=== PATIENT | male | born 1965 | race Caucasian/White ===

== ENCOUNTER 2017-10-03 23:32 | Inpatient (IN) | payer OTHER ==
[~2017-10-03] VITALS: Ht 182.9 cm; Wt 145.3 kg
[~2017-10-03 23:32] MED LIST: ASPI-621 PO; ASPI325T17 PO; CARV-39 PO; CARV3.122 PO; CARV6.2512 PO; DOCU-131 PO; FURO-93 PO; FURO40TA6 PO; GUAI5SYR PO; LEVO750T26 PO; LISI-167 PO; LISI-466 PO; LISI40TA PO; MAGNESIUM DR64 MG PO; POTA20TA14 PO; PRED10TA14 PO; SIMV10TA PO
[2017-10-04 00:29] LABS: BASOPHILS # (AUTO) 0.01 x10^3/uL (0-0.1); BASOPHILS % (AUTO) 0 % (0-1); EOSINOPHILS # (AUTO) 0.05 x10^3/uL (0-0.4); EOSINOPHILS % (AUTO) 0 % (1-7); LYMPHOCYTES # (AUTO) 0.42 x10^3/uL (1-3.4); LYMPHOCYTES % (AUTO) 3 % (22-44); MD NO; MEAN CORPUSCULAR HEMOGLOBIN 32.1 pg (27.5-34.5); MEAN CORPUSCULAR HGB CONC 34.2 g/dL (33.2-36.2); MEAN CORPUSCULAR VOLUME 93.9 fL (81-97); MEAN PLATELET VOLUME 7.4 fL (7.4-10.4); MONOCYTES # (AUTO) 0.77 x10^3/uL (0.2-0.8); MONOCYTES % (AUTO) 6 % (2-9); NEUTROPHILS # (AUTO) 11.96 x10^3/uL (1.8-6.8); NEUTROPHILS % (AUTO) 91 % (42-75); PLATELET COUNT 150 x10^3/uL (130-400); RED BLOOD COUNT 4.32 x10^6/uL (4.38-5.82); RED CELL DISTRIBUTION WIDTH 15.2 % (9.4-14.8)
[2017-10-04 00:41] LABS: ALANINE AMINOTRANSFERASE 31 U/L (12-78); ALBUMIN 2.7 g/dL (3.4-5.0); ANION GAP 8 mmol/L (5-15); CALCIUM 7.9 mg/dL (8.5-10.1); CHLORIDE 98 mmol/L (98-107); CREATININE 2.31 mg/dL (0.7-1.3)
[2017-10-04 00:46] LABS: ALKALINE PHOSPHATASE 80 U/L (45-117); BILIRUBIN,TOTAL 0.7 mg/dL (0.2-1.0); D-DIMER 3.07 ug/mlFEU (0.00-0.52); INTERNATIONAL NORMALIZED RATIO 1.12 (0.93-1.1); PROTHROMBIN TIME 11.5 Seconds (9.6-11.5); TOTAL PROTEIN 6.4 g/dL (6.4-8.2)
[2017-10-04 00:52] LABS: TROPONIN I 0.154 ng/mL (0.000-0.045)
[2017-10-04] MEDS ORDERED: HEPARIN 5,000 UNITS/ML, 1ML ONE (01:26)
[2017-10-04] MEDS ORDERED: HEPARIN 25,000 UNITS/500ML PMX 500 ML ONE (01:28)
[2017-10-04] MEDS ORDERED: HEPARIN 5,000 UNITS/ML, 1ML IV ONE ×3 (01:30→09:30)
[2017-10-04] MEDS ORDERED: HEPARIN 25,000 UNITS/500ML PMX 500 ML IV PRN ×3 (01:30→09:30)
[2017-10-04] MEDS ORDERED: VANCOMYCIN 2,400 MG in SODIUM CHLORIDE 0.9% 500 ML IV ONE (01:30)
[2017-10-04] MEDS ORDERED: VANCOMYCIN PER PHARMACY MC PRN (01:30)
[2017-10-04] MEDS ORDERED: ASPIRIN 81 MG TABLET CHEW ONE (01:56)
[2017-10-04] MEDS ORDERED: ASPIRIN 81 MG TABLET CHEW PO ONE (02:00)
[2017-10-04] MEDS ORDERED: SODIUM CHLORIDE 0.9% 1,000 ML IV SCH (02:40)
[2017-10-04] MEDS ORDERED: DOCUSATE 100 MG CAPSULE PO PRN (03:00)
[2017-10-04] MEDS ORDERED: hydrALAzine 20 MG/ML, 1ML IVPush PRN (03:00)
[2017-10-04 03:19] VITALS: BP 106/69
[2017-10-04 04:13] LABS: BASOPHILS # (AUTO) 0.01 x10^3/uL (0-0.1); BASOPHILS % (AUTO) 0 % (0-1); EOSINOPHILS # (AUTO) 0.06 x10^3/uL (0-0.4); EOSINOPHILS % (AUTO) 0 % (1-7); LYMPHOCYTES # (AUTO) 0.43 x10^3/uL (1-3.4); LYMPHOCYTES % (AUTO) 4 % (22-44); MD NO; MEAN CORPUSCULAR HGB CONC 33.9 g/dL (33.2-36.2); MEAN CORPUSCULAR VOLUME 94.4 fL (81-97); MEAN PLATELET VOLUME 7.9 fL (7.4-10.4); MONOCYTES # (AUTO) 0.68 x10^3/uL (0.2-0.8); MONOCYTES % (AUTO) 5 % (2-9); NEUTROPHILS # (AUTO) 11.24 x10^3/uL (1.8-6.8); NEUTROPHILS % (AUTO) 91 % (42-75); PLATELET COUNT 142 x10^3/uL (130-400); RED BLOOD COUNT 4.18 x10^6/uL (4.38-5.82); RED CELL DISTRIBUTION WIDTH 15.5 % (9.4-14.8)
[2017-10-04 04:23] LABS: ALBUMIN 2.6 g/dL (3.4-5.0); ANION GAP 7 mmol/L (5-15); CALCIUM 7.7 mg/dL (8.5-10.1); CHLORIDE 100 mmol/L (98-107)
[2017-10-04 04:29] LABS: ALANINE AMINOTRANSFERASE 30 U/L (12-78); ALKALINE PHOSPHATASE 78 U/L (45-117); BILIRUBIN,TOTAL 0.8 mg/dL (0.2-1.0); CREATININE 1.76 mg/dL (0.7-1.3); TOTAL PROTEIN 6.3 g/dL (6.4-8.2); TROPONIN I 0.174 ng/mL (0.000-0.045)
[2017-10-04 04:35] LABS: THYROID STIMULATING HORMONE 0.128 mIU/L (0.358-3.740)
[2017-10-04 04:51] LABS: CULTURE INDICATED? YES; MICROSCOPIC INDICATED
[2017-10-04] MEDS: ASPIRIN 81 MG TABLET EC PO SCH (06:21)
[2017-10-04] MEDS: ACETAMINOPHEN 325 MG TABLET PO PRN ×2 (06:22→22:14)
[2017-10-04 07:00] VITALS: BP 126/83
[2017-10-04] MEDS: MAGNESIUM CHLORIDE 64 MG TABLET.DR PO SCH (09:00)
[2017-10-04] MEDS ORDERED: HEPARIN 5,000 UNITS/ML, 1ML IV PRN (09:30)
[2017-10-04] MEDS: CARVEDILOL 25 MG TABLET PO SCH ×2 (10:14→21:26)
[2017-10-04] MEDS: POLYETHYLENE GLYCOL 17 GM PACKET PO SCH (10:14)
[2017-10-04] MEDS: HEPARIN 25,000 UNITS/500ML PMX 500 ML IV PRN (10:21)
[2017-10-04 12:28] LABS: TROPONIN I 0.166 ng/mL (0.000-0.045)
[2017-10-04 13:20] VITALS: BP 96/60
[2017-10-04] MEDS ORDERED: SODIUM CHLORIDE 0.9% 500 ML IV SCH (13:30)
[2017-10-04] MEDS: HEPARIN 5,000 UNITS/ML, 1ML IV PRN ×2 (17:17→23:59)
[2017-10-04] MEDS: SODIUM CHLORIDE 0.9% 1,000 ML IV SCH (17:20)
[2017-10-04] MEDS ORDERED: CEFTRIAXONE 1,000 MG in SODIUM CHLORIDE 0.9% 50 ML IV SCH (17:30)
[2017-10-04] MEDS: CEFTRIAXONE PMX 1GM/50ML 50 ML IV SCH (18:03)
[2017-10-04 19:14] VITALS: BP 97/63
[2017-10-04 21:19] VITALS: BP 97/62
[2017-10-04] MEDS: SIMVASTATIN 10 MG TABLET PO SCH (21:27)
[2017-10-05] MEDS: HEPARIN 25,000 UNITS/500ML PMX 500 ML IV PRN (00:03)
[2017-10-05 02:16] VITALS: BP 101/65
[2017-10-05] MEDS: ASPIRIN 81 MG TABLET EC PO SCH (06:20)
[2017-10-05] MEDS: HEPARIN 5,000 UNITS/ML, 1ML IV PRN (06:21)
[2017-10-05] MEDS: ACETAMINOPHEN 325 MG TABLET PO PRN (06:44)
[2017-10-05 07:03] VITALS: BP 105/68
[2017-10-05] MEDS: CARVEDILOL 25 MG TABLET PO SCH ×2 (08:08→21:00)
[2017-10-05] MEDS: POLYETHYLENE GLYCOL 17 GM PACKET PO SCH (08:08)
[2017-10-05] MEDS: MAGNESIUM CHLORIDE 64 MG TABLET.DR PO SCH (08:08)
[2017-10-05] MEDS: SODIUM CHLORIDE 0.9% 1,000 ML IV SCH ×2 (08:08→18:18)
[2017-10-05 13:22] VITALS: BP 103/65
[2017-10-05] MEDS ORDERED: SODIUM CHLORIDE 0.9% 500 ML IV ONE (13:30)
[2017-10-05] MEDS: TAMSULOSIN 0.4 MG CAP.ER.24H PO SCH (14:07)
[2017-10-05] MEDS: MORPHINE SULFATE 4 MG/ML, 1ML IVPush PRN (16:37)
[2017-10-05 17:37] LABS: TROPONIN I 0.049 ng/mL (0.000-0.045)
[2017-10-05] MEDS: CEFTRIAXONE PMX 1GM/50ML 50 ML IV SCH (18:17)
[2017-10-05 19:04] VITALS: BP 105/65
[2017-10-05] MEDS: ONDANSETRON 2MG/ML, 2ML IVPush PRN (21:50)
[2017-10-05] MEDS: HYDROcodone/APAP 5/325 TABLET PO PRN (21:51)
[2017-10-05] MEDS: SIMVASTATIN 10 MG TABLET PO SCH (21:53)
[2017-10-05 21:58] VITALS: BP_SYST 109; BP_SYST 98; BP_DIAS 21; BP_DIAS 69
[2017-10-06 00:59] VITALS: BP 95/58
[2017-10-06] MEDS: SODIUM CHLORIDE 0.9% 1,000 ML IV SCH ×2 (05:01→15:11)
[2017-10-06] MEDS: ASPIRIN 81 MG TABLET EC PO SCH (05:04)
[2017-10-06 05:06] LABS: BASOPHILS % (AUTO) 0 % (0-1); EOSINOPHILS # (AUTO) 0.13 x10^3/uL (0-0.4); EOSINOPHILS % (AUTO) 1 % (1-7); LYMPHOCYTES # (AUTO) 0.48 x10^3/uL (1-3.4); LYMPHOCYTES % (AUTO) 4 % (22-44); MD NO; MEAN CORPUSCULAR HGB CONC 33.7 g/dL (33.2-36.2); MEAN CORPUSCULAR VOLUME 95.1 fL (81-97); MEAN PLATELET VOLUME 8.4 fL (7.4-10.4); MONOCYTES # (AUTO) 0.99 x10^3/uL (0.2-0.8); MONOCYTES % (AUTO) 9 % (2-9); NEUTROPHILS # (AUTO) 9.33 x10^3/uL (1.8-6.8); NEUTROPHILS % (AUTO) 85 % (42-75); PLATELET COUNT 124 x10^3/uL (130-400); RED CELL DISTRIBUTION WIDTH 15.7 % (9.4-14.8)
[2017-10-06 05:08] LABS: ANION GAP 3 mmol/L (5-15); CALCIUM 7.8 mg/dL (8.5-10.1); CHLORIDE 102 mmol/L (98-107); CREATININE 1.01 mg/dL (0.7-1.3)
[2017-10-06 08:09] VITALS: BP 99/63
[2017-10-06] MEDS: MAGNESIUM CHLORIDE 64 MG TABLET.DR PO SCH (09:00)
[2017-10-06] MEDS: CARVEDILOL 25 MG TABLET PO SCH ×2 (10:01→19:50)
[2017-10-06] MEDS: POLYETHYLENE GLYCOL 17 GM PACKET PO SCH (10:01)
[2017-10-06] MEDS: TAMSULOSIN 0.4 MG CAP.ER.24H PO SCH (10:01)
[2017-10-06 13:05] VITALS: BP 115/65
[2017-10-06] MEDS ORDERED: LORazepam 2 MG/ML, 1ML IVPush ONE (17:30)
[2017-10-06] MEDS: CEFTRIAXONE PMX 1GM/50ML 50 ML IV SCH (18:01)
[2017-10-06] MEDS ORDERED: OMNIPAQUE 350 MG/ML, 50 ML BOTTLE ONE (19:17)
[2017-10-06] MEDS ORDERED: OMNIPAQUE 350 MG/ML, 150 ML BOTTLE ONE (19:17)
[2017-10-06] MEDS: SIMVASTATIN 10 MG TABLET PO SCH (19:50)
[2017-10-06] MEDS ORDERED: ZIPRASIDONE 20MG CAPSULE PO ONE (20:00)
[2017-10-06] MEDS ORDERED: ENOXAPARIN 40 MG/0.4 ML SQ SCH (20:00)
[2017-10-06 20:15] VITALS: BP 125/95
[2017-10-07] MEDS: MORPHINE SULFATE 4 MG/ML, 1ML IVPush PRN (02:04)
[2017-10-07 03:21] VITALS: BP 122/52
[2017-10-07] MEDS: SODIUM CHLORIDE 0.9% 1,000 ML IV SCH ×2 (06:10→21:52)
[2017-10-07 07:47] LABS: BASOPHILS # (AUTO) 0.03 x10^3/uL (0-0.1); BASOPHILS % (AUTO) 0 % (0-1); EOSINOPHILS # (AUTO) 0.12 x10^3/uL (0-0.4); EOSINOPHILS % (AUTO) 1 % (1-7); LYMPHOCYTES # (AUTO) 0.45 x10^3/uL (1-3.4); LYMPHOCYTES % (AUTO) 4 % (22-44); MD NO; MEAN CORPUSCULAR HEMOGLOBIN 31.5 pg (27.5-34.5); MEAN CORPUSCULAR HGB CONC 33.5 g/dL (33.2-36.2); MEAN PLATELET VOLUME 7.8 fL (7.4-10.4); MONOCYTES # (AUTO) 0.95 x10^3/uL (0.2-0.8); MONOCYTES % (AUTO) 9 % (2-9); NEUTROPHILS # (AUTO) 8.66 x10^3/uL (1.8-6.8); NEUTROPHILS % (AUTO) 85 % (42-75); PLATELET COUNT 144 x10^3/uL (130-400); RED BLOOD COUNT 3.83 x10^6/uL (4.38-5.82)
[2017-10-07 07:49] VITALS: BP 139/80
[2017-10-07 07:56] LABS: ANION GAP 6 mmol/L (5-15); CALCIUM 8.4 mg/dL (8.5-10.1); CHLORIDE 104 mmol/L (98-107)
[2017-10-07 07:59] LABS: ALANINE AMINOTRANSFERASE 39 U/L (12-78); ALKALINE PHOSPHATASE 91 U/L (45-117); BILIRUBIN,TOTAL 0.4 mg/dL (0.2-1.0); TOTAL PROTEIN 6.2 g/dL (6.4-8.2)
[2017-10-07] MEDS: TAMSULOSIN 0.4 MG CAP.ER.24H PO SCH ×2 (09:00→10:15)
[2017-10-07] MEDS: ASPIRIN 81 MG TABLET EC PO SCH (09:00)
[2017-10-07] MEDS: POLYETHYLENE GLYCOL 17 GM PACKET PO SCH (09:00)
[2017-10-07] MEDS: MAGNESIUM CHLORIDE 64 MG TABLET.DR PO SCH ×2 (09:00→10:15)
[2017-10-07] MEDS: CARVEDILOL 25 MG TABLET PO SCH ×3 (09:00→21:52)
[2017-10-07 09:41] LABS: TROPONIN I < 0.015 ng/mL (0.000-0.045)
[2017-10-07] MEDS: METRONIDAZOLE PMX 500MG/100ML 100 ML IV SCH ×2 (10:43→18:44)
[2017-10-07 14:23] VITALS: BP 147/84
[2017-10-07 17:11] LABS: BASOPHILS # (AUTO) 0.01 x10^3/uL (0-0.1); BASOPHILS % (AUTO) 0 % (0-1); EOSINOPHILS # (AUTO) 0.14 x10^3/uL (0-0.4); EOSINOPHILS % (AUTO) 1 % (1-7); LYMPHOCYTES # (AUTO) 0.46 x10^3/uL (1-3.4); LYMPHOCYTES % (AUTO) 4 % (22-44); MD NO; MEAN CORPUSCULAR HEMOGLOBIN 31.9 pg (27.5-34.5); MEAN CORPUSCULAR HGB CONC 33.6 g/dL (33.2-36.2); MEAN CORPUSCULAR VOLUME 94.7 fL (81-97); MEAN PLATELET VOLUME 7.9 fL (7.4-10.4); MONOCYTES # (AUTO) 1.17 x10^3/uL (0.2-0.8); MONOCYTES % (AUTO) 11 % (2-9); NEUTROPHILS % (AUTO) 83 % (42-75); PLATELET COUNT 165 x10^3/uL (130-400); RED BLOOD COUNT 3.89 x10^6/uL (4.38-5.82)
[2017-10-07 17:19] LABS: ALBUMIN 2.1 g/dL (3.4-5.0); BILIRUBIN, DIRECT 0.2 mg/dL (0.1-0.2)
[2017-10-07 17:21] LABS: BILIRUBIN,INDIRECT 0.2 mg/dL (0.0-2.0); BILIRUBIN,TOTAL 0.4 mg/dL (0.2-1.0); TOTAL PROTEIN 6.3 g/dL (6.4-8.2)
[2017-10-07] MEDS: CEFTRIAXONE PMX 1GM/50ML 50 ML IV SCH (18:07)
[2017-10-07 21:03] VITALS: BP 146/87
[2017-10-07] MEDS ORDERED: ALBUTEROL/IPRATROPIUM 2.5MG/0.5MG, 3 ML ONE (21:11)
[2017-10-07] MEDS ORDERED: SIMVASTATIN 5 MG TABLET ONE (21:43)
[2017-10-07] MEDS: SIMVASTATIN 10 MG TABLET PO SCH (21:51)
[2017-10-08] MEDS: MORPHINE SULFATE 4 MG/ML, 1ML IVPush PRN (01:46)
[2017-10-08 02:01] VITALS: BP 156/78
[2017-10-08] MEDS: METRONIDAZOLE PMX 500MG/100ML 100 ML IV SCH ×3 (02:36→21:57)
[2017-10-08] MEDS: ASPIRIN 81 MG TABLET EC PO SCH (04:59)
[2017-10-08] MEDS: SODIUM CHLORIDE 0.9% 1,000 ML IV SCH ×2 (05:06→21:46)
[2017-10-08 06:31] LABS: BASOPHILS # (AUTO) 0.02 x10^3/uL (0-0.1); BASOPHILS % (AUTO) 0 % (0-1); EOSINOPHILS # (AUTO) 0.13 x10^3/uL (0-0.4); EOSINOPHILS % (AUTO) 1 % (1-7); LYMPHOCYTES # (AUTO) 0.51 x10^3/uL (1-3.4); LYMPHOCYTES % (AUTO) 5 % (22-44); MD NO; MEAN CORPUSCULAR HEMOGLOBIN 31.6 pg (27.5-34.5); MEAN CORPUSCULAR HGB CONC 33.3 g/dL (33.2-36.2); MEAN CORPUSCULAR VOLUME 94.9 fL (81-97); MEAN PLATELET VOLUME 7.7 fL (7.4-10.4); MONOCYTES # (AUTO) 0.75 x10^3/uL (0.2-0.8); MONOCYTES % (AUTO) 7 % (2-9); NEUTROPHILS # (AUTO) 9.85 x10^3/uL (1.8-6.8); NEUTROPHILS % (AUTO) 88 % (42-75); PLATELET COUNT 188 x10^3/uL (130-400); RED BLOOD COUNT 3.96 x10^6/uL (4.38-5.82); RED CELL DISTRIBUTION WIDTH 16.2 % (9.4-14.8)
[2017-10-08 06:38] LABS: INTERNATIONAL NORMALIZED RATIO 1.05 (0.93-1.1); PROTHROMBIN TIME 10.8 Seconds (9.6-11.5)
[2017-10-08 06:42] LABS: ALANINE AMINOTRANSFERASE 38 U/L (12-78); ALBUMIN 2.1 g/dL (3.4-5.0); ANION GAP 5 mmol/L (5-15); CALCIUM 8.4 mg/dL (8.5-10.1); CHLORIDE 108 mmol/L (98-107); CREATININE 0.66 mg/dL (0.7-1.3)
[2017-10-08 06:44] LABS: ALKALINE PHOSPHATASE 97 U/L (45-117); BILIRUBIN,TOTAL 0.3 mg/dL (0.2-1.0); TOTAL PROTEIN 6.3 g/dL (6.4-8.2)
[2017-10-08] MEDS ORDERED: MIDAZOLAM 1 MG/ML, 2ML ONE (06:50)
[2017-10-08] MEDS ORDERED: FENTANYL PF 250 MCG/5ML ONE (06:51)
[2017-10-08] MEDS ORDERED: PROPOFOL 10 MG/ML, 20ML ONE (06:51)
[2017-10-08] MEDS ORDERED: ROCURONIUM 10MG/ML,5ML ONE ×2 (06:52→08:04)
[2017-10-08] MEDS ORDERED: NEOSTIGMINE 1 MG/ML, 10ML ONE (06:55)
[2017-10-08] MEDS ORDERED: GLYCOPYRROLATE 0.4 MG/2 ML, 2ML ONE ×2 (06:55→08:21)
[2017-10-08] MEDS ORDERED: BUPIVACAINE/PF 0.5% ONE (07:01)
[2017-10-08] MEDS ORDERED: LABETALOL 5MG/ML, 20ML IV PRN (07:30)
[2017-10-08] MEDS ORDERED: HYDROmorphone 1 MG/ML, 1ML IV PRN (07:30)
[2017-10-08] MEDS ORDERED: ONDANSETRON 2MG/ML, 2ML IVPush PRN (07:30)
[2017-10-08] MEDS ORDERED: PROMETHAZINE 25 MG/ML, 1ML IV PRN (07:30)
[2017-10-08] MEDS ORDERED: OXYcodone 5 MG/5 ML ORAL.SOL UDC PO PRN (07:30)
[2017-10-08] MEDS ORDERED: MEPERIDINE/PF 25MG/0.5ML IVPush PRN (07:30)
[2017-10-08] MEDS ORDERED: FENTANYL PF 100 MCG/2ML IV PRN (07:30)
[2017-10-08] MEDS ORDERED: hydrALAzine 20 MG/ML, 1ML IV PRN (07:30)
[2017-10-08] MEDS ORDERED: PROMETHAZINE 12.5 MG SUPP PR PRN (07:30)
[2017-10-08] MEDS ORDERED: CEFOTETAN 2 GM ONE (07:39)
[2017-10-08] MEDS: MAGNESIUM CHLORIDE 64 MG TABLET.DR PO SCH (09:00)
[2017-10-08] MEDS: POLYETHYLENE GLYCOL 17 GM PACKET PO SCH (09:00)
[2017-10-08] MEDS ORDERED: SUGAMMADEX 200 MG/2 ML IVPush ONE ×2 (10:30)
[2017-10-08] MEDS ORDERED: FENTANYL PF 100 MCG/2ML ONE (10:59)
[2017-10-08] MEDS ORDERED: MORPHINE SULFATE 4 MG/ML, 1ML ONE ×2 (10:59→11:46)
[2017-10-08] MEDS ORDERED: LORazepam 2 MG/ML, 1ML ONE (11:16)
[2017-10-08] MEDS ORDERED: LORazepam 2 MG/ML, 1ML IVPush PRN (11:30)
[2017-10-08] MEDS: morphine SULFATE 10 MG/ML, 1ML IV PRN ×2 (11:30→11:49)
[2017-10-08 14:00] VITALS: BP 127/81
[2017-10-08] MEDS: TAMSULOSIN 0.4 MG CAP.ER.24H PO SCH (14:15)
[2017-10-08] MEDS: CARVEDILOL 25 MG TABLET PO SCH ×2 (14:15→21:46)
[2017-10-08] MEDS: HYDROcodone/APAP 5/325 TABLET PO PRN ×2 (15:48→22:45)
[2017-10-08] MEDS: CEFTRIAXONE PMX 1GM/50ML 50 ML IV SCH (18:07)
[2017-10-08 19:39] VITALS: BP 154/99
[2017-10-08] MEDS: SIMVASTATIN 10 MG TABLET PO SCH (21:46)
[2017-10-09 00:16] VITALS: BP 146/70
[2017-10-09] MEDS: MORPHINE SULFATE 4 MG/ML, 1ML IVPush PRN (04:00)
[2017-10-09 05:07] LABS: BASOPHILS # (AUTO) 0.03 x10^3/uL (0-0.1); BASOPHILS % (AUTO) 0 % (0-1); EOSINOPHILS # (AUTO) 0.14 x10^3/uL (0-0.4); EOSINOPHILS % (AUTO) 1 % (1-7); LYMPHOCYTES # (AUTO) 0.98 x10^3/uL (1-3.4); LYMPHOCYTES % (AUTO) 8 % (22-44); MD NO; MEAN CORPUSCULAR HEMOGLOBIN 31.7 pg (27.5-34.5); MEAN CORPUSCULAR HGB CONC 33.4 g/dL (33.2-36.2); MEAN CORPUSCULAR VOLUME 94.9 fL (81-97); MONOCYTES # (AUTO) 1.23 x10^3/uL (0.2-0.8); MONOCYTES % (AUTO) 10 % (2-9); NEUTROPHILS # (AUTO) 9.68 x10^3/uL (1.8-6.8); NEUTROPHILS % (AUTO) 80 % (42-75); PLATELET COUNT 240 x10^3/uL (130-400); RED BLOOD COUNT 3.84 x10^6/uL (4.38-5.82); RED CELL DISTRIBUTION WIDTH 16.5 % (9.4-14.8)
[2017-10-09 05:12] LABS: ALANINE AMINOTRANSFERASE 32 U/L (12-78); ALBUMIN 1.9 g/dL (3.4-5.0); ANION GAP 2 mmol/L (5-15); CALCIUM 8.2 mg/dL (8.5-10.1); CHLORIDE 109 mmol/L (98-107); CREATININE 0.68 mg/dL (0.7-1.3)
[2017-10-09 05:15] LABS: ALKALINE PHOSPHATASE 81 U/L (45-117); BILIRUBIN,TOTAL 0.5 mg/dL (0.2-1.0); TOTAL PROTEIN 5.4 g/dL (6.4-8.2)
[2017-10-09] MEDS: SODIUM CHLORIDE 0.9% 1,000 ML IV SCH ×2 (06:08→20:12)
[2017-10-09] MEDS: METRONIDAZOLE PMX 500MG/100ML 100 ML IV SCH ×2 (06:08→16:32)
[2017-10-09 07:54] VITALS: BP 162/94
[2017-10-09] MEDS: POLYETHYLENE GLYCOL 17 GM PACKET PO SCH (08:22)
[2017-10-09] MEDS: TAMSULOSIN 0.4 MG CAP.ER.24H PO SCH (08:22)
[2017-10-09] MEDS: CARVEDILOL 25 MG TABLET PO SCH ×2 (08:22→20:11)
[2017-10-09] MEDS: HEPARIN 5,000 UNITS/ML, 1ML SQ SCH ×2 (08:22→16:32)
[2017-10-09] MEDS: ASPIRIN 81 MG TABLET EC PO SCH (08:22)
[2017-10-09] MEDS: MAGNESIUM CHLORIDE 64 MG TABLET.DR PO SCH (08:22)
[2017-10-09] MEDS: HYDROcodone/APAP 5/325 TABLET PO PRN ×2 (13:44→20:11)
[2017-10-09 14:00] VITALS: BP 152/83
[2017-10-09] MEDS: CEFTRIAXONE PMX 1GM/50ML 50 ML IV SCH (18:10)
[2017-10-09] MEDS: SIMVASTATIN 10 MG TABLET PO SCH (20:12)
[2017-10-09 20:31] VITALS: BP 160/79
[2017-10-10 00:20] VITALS: BP 139/79
[2017-10-10] MEDS: METRONIDAZOLE PMX 500MG/100ML 100 ML IV SCH ×3 (00:22→17:44)
[2017-10-10] MEDS: HEPARIN 5,000 UNITS/ML, 1ML SQ SCH ×3 (00:22→17:44)
[2017-10-10] MEDS: HYDROcodone/APAP 5/325 TABLET PO PRN ×3 (02:19→21:55)
[2017-10-10 05:24] LABS: MEAN CORPUSCULAR HEMOGLOBIN 31.3 pg (27.5-34.5); MEAN CORPUSCULAR HGB CONC 33.1 g/dL (33.2-36.2); MEAN CORPUSCULAR VOLUME 94.8 fL (81-97); MEAN PLATELET VOLUME 8.1 fL (7.4-10.4); PLATELET COUNT 290 x10^3/uL (130-400); RED BLOOD COUNT 3.58 x10^6/uL (4.38-5.82); RED CELL DISTRIBUTION WIDTH 16.1 % (9.4-14.8)
[2017-10-10 05:32] LABS: ALBUMIN 1.7 g/dL (3.4-5.0); ANION GAP 3 mmol/L (5-15); CALCIUM 7.7 mg/dL (8.5-10.1); CHLORIDE 104 mmol/L (98-107)
[2017-10-10 05:37] LABS: ALANINE AMINOTRANSFERASE 25 U/L (12-78); ALKALINE PHOSPHATASE 73 U/L (45-117); BILIRUBIN,TOTAL 0.4 mg/dL (0.2-1.0); CREATININE 0.57 mg/dL (0.7-1.3); TOTAL PROTEIN 5.2 g/dL (6.4-8.2)
[2017-10-10 05:49] LABS: BASOPHILS # (AUTO) 0.02 x10^3/uL (0-0.1); BASOPHILS % (AUTO) 0 % (0-1); EOSINOPHILS # (AUTO) 0.32 x10^3/uL (0-0.4); EOSINOPHILS % (AUTO) 3 % (1-7); LYMPHOCYTES # (AUTO) 0.99 x10^3/uL (1-3.4); LYMPHOCYTES % (AUTO) 8 % (22-44); MD SCAN; MONOCYTES # (AUTO) 0.83 x10^3/uL (0.2-0.8); MONOCYTES % (AUTO) 7 % (2-9); NEUTROPHILS # (AUTO) 10.34 x10^3/uL (1.8-6.8); NEUTROPHILS % (AUTO) 83 % (42-75)
[2017-10-10] MEDS: ASPIRIN 81 MG TABLET EC PO SCH (05:58)
[2017-10-10 08:30] VITALS: BP 139/89
[2017-10-10] MEDS: CARVEDILOL 25 MG TABLET PO SCH ×2 (09:45→21:48)
[2017-10-10] MEDS: TAMSULOSIN 0.4 MG CAP.ER.24H PO SCH (09:45)
[2017-10-10] MEDS: POLYETHYLENE GLYCOL 17 GM PACKET PO SCH (09:45)
[2017-10-10] MEDS: MAGNESIUM CHLORIDE 64 MG TABLET.DR PO SCH (09:52)
[2017-10-10] MEDS: SODIUM CHLORIDE 0.9% 1,000 ML IV SCH (09:52)
[2017-10-10 14:00] VITALS: BP 144/95
[2017-10-10 19:44] VITALS: BP 164/94
[2017-10-10] MEDS: CEFTRIAXONE PMX 1GM/50ML 50 ML IV SCH (20:21)
[2017-10-10] MEDS: SIMVASTATIN 10 MG TABLET PO SCH (21:48)
[2017-10-11] MEDS: SODIUM CHLORIDE 0.9% 1,000 ML IV SCH ×2 (01:38→11:53)
[2017-10-11] MEDS: METRONIDAZOLE PMX 500MG/100ML 100 ML IV SCH ×3 (01:38→17:07)
[2017-10-11] MEDS: HEPARIN 5,000 UNITS/ML, 1ML SQ SCH ×3 (01:38→17:07)
[2017-10-11 03:13] VITALS: BP 155/82
[2017-10-11 05:58] LABS: MEAN CORPUSCULAR HEMOGLOBIN 31.7 pg (27.5-34.5); MEAN CORPUSCULAR HGB CONC 33.5 g/dL (33.2-36.2); MEAN CORPUSCULAR VOLUME 94.5 fL (81-97); PLATELET COUNT 372 x10^3/uL (130-400); RED BLOOD COUNT 3.71 x10^6/uL (4.38-5.82); RED CELL DISTRIBUTION WIDTH 15.7 % (9.4-14.8)
[2017-10-11 06:04] LABS: CHLORIDE 103 mmol/L (98-107)
[2017-10-11 06:11] LABS: ALANINE AMINOTRANSFERASE 22 U/L (12-78); ALBUMIN 1.9 g/dL (3.4-5.0); ALKALINE PHOSPHATASE 71 U/L (45-117); ANION GAP 3 mmol/L (5-15); BILIRUBIN,TOTAL 0.4 mg/dL (0.2-1.0); CREATININE 0.65 mg/dL (0.7-1.3); TOTAL PROTEIN 5.5 g/dL (6.4-8.2)
[2017-10-11 06:36] LABS: MD YES
[2017-10-11 06:39] LABS: BANDS%(MANUAL) 4 % (0-7); BASOS#(MANUAL) 0.12 x10^3/uL (0-0.1); BASOS% (MANUAL) 1 % (0-1); EOS#(MANUAL) 0.12 x10^3/uL (0.0-0.4); EOS% (MANUAL) 1 % (1-7); LYMPH#(MANUAL) 1.36 x10^3/uL (1-3.4); LYMPHS% (MANUAL) 11 % (22-44); METAMYELOCYTES# (MANUAL) 0.37 x10^3/uL (0-0); METAMYELOCYTES% (MANUAL) 3 % (0-1); MONOS#(MANUAL) 0.62 x10^3/uL (0.3-2.7); MONOS% (MANUAL) 5 % (2-9); MYELOCYTES# (MANUAL) 0.12 x10^3/uL (0-0); MYELOCYTES% (MANUAL) 1 % (0-0); REACTIVE LYMPHS # (MANUAL) 0.12 x10^3/uL (0-0); REACTIVE LYMPHS % (MANUAL) 1 % (0-0); SEG#(MANUAL) 9.05 x10^3/uL (1.8-6.8); SEGS% (MANUAL) 73 % (42-75)
[2017-10-11 06:40] LABS: <PLATELET ESTIMATE> ADEQUATE; <PLT MORPHOLOGY> NORMAL PLT MORPH; ANISOCYTOSIS 1+; POLYCHROMASIA 1+
[2017-10-11 06:41] LABS: TOXIC GRAN 1+
[2017-10-11 09:36] VITALS: BP 153/80
[2017-10-11] MEDS: MAGNESIUM CHLORIDE 64 MG TABLET.DR PO SCH (09:39)
[2017-10-11] MEDS: ASPIRIN 81 MG TABLET EC PO SCH (09:39)
[2017-10-11] MEDS: POLYETHYLENE GLYCOL 17 GM PACKET PO SCH (09:39)
[2017-10-11] MEDS: CARVEDILOL 25 MG TABLET PO SCH ×2 (09:39→20:08)
[2017-10-11] MEDS: TAMSULOSIN 0.4 MG CAP.ER.24H PO SCH (09:39)
[2017-10-11 13:45] VITALS: BP 152/80
[2017-10-11] MEDS: CEFTRIAXONE PMX 1GM/50ML 50 ML IV SCH (20:03)
[2017-10-11 20:04] VITALS: BP 153/81
[2017-10-11] MEDS: SIMVASTATIN 10 MG TABLET PO SCH (20:08)
[2017-10-12 00:48] VITALS: BP 152/89
[2017-10-12] MEDS: HEPARIN 5,000 UNITS/ML, 1ML SQ SCH ×3 (02:00→17:45)
[2017-10-12] MEDS: METRONIDAZOLE PMX 500MG/100ML 100 ML IV SCH ×3 (02:00→17:45)
[2017-10-12 02:55] LABS: CLOSTRIDIUM DIFFICILE ANTIGEN NEGATIVE; CLOSTRIDIUM DIFFICILE TOXIN NEGATIVE (Negative)
[2017-10-12 05:08] LABS: MEAN CORPUSCULAR HEMOGLOBIN 31.4 pg (27.5-34.5); MEAN CORPUSCULAR HGB CONC 33.3 g/dL (33.2-36.2); MEAN CORPUSCULAR VOLUME 94.3 fL (81-97); MEAN PLATELET VOLUME 8.2 fL (7.4-10.4); PLATELET COUNT 414 x10^3/uL (130-400); RED BLOOD COUNT 3.74 x10^6/uL (4.38-5.82); RED CELL DISTRIBUTION WIDTH 15.4 % (9.4-14.8)
[2017-10-12 05:18] LABS: CHLORIDE 102 mmol/L (98-107)
[2017-10-12 05:34] LABS: ALANINE AMINOTRANSFERASE 23 U/L (12-78); ALBUMIN 2.1 g/dL (3.4-5.0); ALKALINE PHOSPHATASE 73 U/L (45-117); ANION GAP 2 mmol/L (5-15); BILIRUBIN,TOTAL 0.4 mg/dL (0.2-1.0); CALCIUM 7.7 mg/dL (8.5-10.1); CREATININE 0.62 mg/dL (0.7-1.3); TOTAL PROTEIN 5.7 g/dL (6.4-8.2)
[2017-10-12 06:06] LABS: BASOPHILS # (AUTO) 0.04 x10^3/uL (0-0.1); BASOPHILS % (AUTO) 0 % (0-1); EOSINOPHILS % (AUTO) 3 % (1-7); LYMPHOCYTES # (AUTO) 1.08 x10^3/uL (1-3.4); LYMPHOCYTES % (AUTO) 9 % (22-44); MD SCAN; MONOCYTES # (AUTO) 0.59 x10^3/uL (0.2-0.8); MONOCYTES % (AUTO) 5 % (2-9); NEUTROPHILS # (AUTO) 10.48 x10^3/uL (1.8-6.8); NEUTROPHILS % (AUTO) 83 % (42-75)
[2017-10-12 06:49] VITALS: BP 146/74
[2017-10-12] MEDS: ASPIRIN 81 MG TABLET EC PO SCH (08:25)
[2017-10-12] MEDS: MAGNESIUM CHLORIDE 64 MG TABLET.DR PO SCH (08:25)
[2017-10-12] MEDS: TAMSULOSIN 0.4 MG CAP.ER.24H PO SCH (08:25)
[2017-10-12] MEDS: POLYETHYLENE GLYCOL 17 GM PACKET PO SCH (08:26)
[2017-10-12] MEDS: CARVEDILOL 25 MG TABLET PO SCH ×2 (08:26→19:57)
[2017-10-12] MEDS: SODIUM CHLORIDE 0.9% 1,000 ML IV SCH ×3 (08:26→18:09)
[2017-10-12] MEDS: HYDROcodone/APAP 5/325 TABLET PO PRN ×2 (09:54→19:58)
[2017-10-12 12:48] VITALS: BP 149/77
[2017-10-12 19:56] VITALS: BP 139/73
[2017-10-12] MEDS: CEFTRIAXONE PMX 1GM/50ML 50 ML IV SCH (19:57)
[2017-10-12] MEDS: SIMVASTATIN 10 MG TABLET PO SCH (19:57)
[2017-10-13] MEDS: METRONIDAZOLE PMX 500MG/100ML 100 ML IV SCH ×3 (01:43→17:56)
[2017-10-13] MEDS: HEPARIN 5,000 UNITS/ML, 1ML SQ SCH ×3 (01:49→17:56)
[2017-10-13 02:06] VITALS: BP 140/85
[2017-10-13] MEDS: ASPIRIN 81 MG TABLET EC PO SCH (04:45)
[2017-10-13 05:55] LABS: MEAN CORPUSCULAR HEMOGLOBIN 31.9 pg (27.5-34.5); MEAN CORPUSCULAR HGB CONC 33.7 g/dL (33.2-36.2); MEAN CORPUSCULAR VOLUME 94.7 fL (81-97); MEAN PLATELET VOLUME 8.3 fL (7.4-10.4); PLATELET COUNT 437 x10^3/uL (130-400); RED BLOOD COUNT 3.61 x10^6/uL (4.38-5.82); RED CELL DISTRIBUTION WIDTH 15.9 % (9.4-14.8)
[2017-10-13 06:07] LABS: ALANINE AMINOTRANSFERASE 22 U/L (12-78); ANION GAP 5 mmol/L (5-15); CALCIUM 7.7 mg/dL (8.5-10.1); CHLORIDE 104 mmol/L (98-107); CREATININE 0.55 mg/dL (0.7-1.3)
[2017-10-13 06:09] LABS: ALKALINE PHOSPHATASE 68 U/L (45-117); BILIRUBIN,TOTAL 0.5 mg/dL (0.2-1.0); TOTAL PROTEIN 5.5 g/dL (6.4-8.2)
[2017-10-13 06:27] LABS: MD YES
[2017-10-13 06:29] LABS: ANISOCYTOSIS 1+; BAND#(MANUAL) 0.71 x10^3/uL; BANDS%(MANUAL) 5 % (0-7); EOS#(MANUAL) 0.28 x10^3/uL (0.0-0.4); EOS% (MANUAL) 2 % (1-7); LYMPH#(MANUAL) 1.69 x10^3/uL (1-3.4); LYMPHS% (MANUAL) 12 % (22-44); METAMYELOCYTES# (MANUAL) 0.42 x10^3/uL (0-0); METAMYELOCYTES% (MANUAL) 3 % (0-1); MONOS#(MANUAL) 0.56 x10^3/uL (0.3-2.7); MONOS% (MANUAL) 4 % (2-9); MYELOCYTES# (MANUAL) 0.28 x10^3/uL (0-0); MYELOCYTES% (MANUAL) 2 % (0-0); POLYCHROMASIA 1+; SEG#(MANUAL) 10.15 x10^3/uL (1.8-6.8); SEGS% (MANUAL) 72 % (42-75)
[2017-10-13 06:30] LABS: <PLATELET ESTIMATE> INCREASED; <PLT MORPHOLOGY> NORMAL PLT MORPH; TOXIC GRAN 1+
[2017-10-13 06:43] VITALS: BP 139/81
[2017-10-13] MEDS: TAMSULOSIN 0.4 MG CAP.ER.24H PO SCH (08:56)
[2017-10-13] MEDS: CARVEDILOL 25 MG TABLET PO SCH ×2 (08:56→21:34)
[2017-10-13] MEDS: MAGNESIUM CHLORIDE 64 MG TABLET.DR PO SCH (08:56)
[2017-10-13] MEDS: POLYETHYLENE GLYCOL 17 GM PACKET PO SCH (08:56)
[2017-10-13] MEDS: SODIUM CHLORIDE 0.9% 1,000 ML IV SCH (09:56)
[2017-10-13] MEDS ORDERED: CEFTRIAXONE PMX 2GM/50ML 50 ML IV SCH (12:30)
[2017-10-13] MEDS: CEFTRIAXONE 2 GM in DEXTROSE 5% 50 ML IV SCH (13:03)
[2017-10-13 14:41] VITALS: BP 149/94
[2017-10-13] MEDS: HYDROcodone/APAP 10/325 MG TABLET PO PRN ×2 (15:15→21:34)
[2017-10-13] MEDS ORDERED: CEFTRIAXONE PMX 1GM/50ML 50 ML IV SCH (18:00)
[2017-10-13 18:25] VITALS: BP 135/77
[2017-10-13] MEDS: ONDANSETRON 2MG/ML, 2ML IVPush PRN (21:33)
[2017-10-13] MEDS: SIMVASTATIN 10 MG TABLET PO SCH (21:34)
[2017-10-14] MEDS: HEPARIN 5,000 UNITS/ML, 1ML SQ SCH ×3 (01:36→18:02)
[2017-10-14] MEDS: METRONIDAZOLE PMX 500MG/100ML 100 ML IV SCH ×3 (01:36→18:01)
[2017-10-14 01:56] VITALS: BP 132/76
[2017-10-14 05:23] LABS: MEAN CORPUSCULAR HEMOGLOBIN 31.5 pg (27.5-34.5); MEAN CORPUSCULAR HGB CONC 33.1 g/dL (33.2-36.2); MEAN CORPUSCULAR VOLUME 95.3 fL (81-97); PLATELET COUNT 425 x10^3/uL (130-400); RED BLOOD COUNT 3.64 x10^6/uL (4.38-5.82); RED CELL DISTRIBUTION WIDTH 15.6 % (9.4-14.8)
[2017-10-14 05:33] LABS: ALBUMIN 2.2 g/dL (3.4-5.0); ANION GAP 4 mmol/L (5-15); CALCIUM 8.2 mg/dL (8.5-10.1); CHLORIDE 102 mmol/L (98-107)
[2017-10-14 05:37] LABS: ALANINE AMINOTRANSFERASE 23 U/L (12-78); ALKALINE PHOSPHATASE 63 U/L (45-117); BILIRUBIN,TOTAL 0.4 mg/dL (0.2-1.0); CREATININE 0.64 mg/dL (0.7-1.3); TOTAL PROTEIN 5.8 g/dL (6.4-8.2)
[2017-10-14 05:57] LABS: MD YES
[2017-10-14 05:59] LABS: ANISOCYTOSIS 1+; BAND#(MANUAL) 0.12 x10^3/uL; BANDS%(MANUAL) 1 % (0-7); EOS#(MANUAL) 0.24 x10^3/uL (0.0-0.4); EOS% (MANUAL) 2 % (1-7); LYMPH#(MANUAL) 0.85 x10^3/uL (1-3.4); LYMPHS% (MANUAL) 7 % (22-44); METAMYELOCYTES# (MANUAL) 0.37 x10^3/uL (0-0); METAMYELOCYTES% (MANUAL) 3 % (0-1); MONOS#(MANUAL) 0.61 x10^3/uL (0.3-2.7); MONOS% (MANUAL) 5 % (2-9); POLYCHROMASIA 1+; SEGS% (MANUAL) 82 % (42-75)
[2017-10-14 06:00] LABS: <PLATELET ESTIMATE> INCREASED; <PLT MORPHOLOGY> NORMAL PLT MORPH
[2017-10-14] MEDS: ASPIRIN 81 MG TABLET EC PO SCH (06:00)
[2017-10-14 06:01] LABS: TOXIC GRAN 1+
[2017-10-14] MEDS: SODIUM CHLORIDE 0.9% 1,000 ML IV SCH ×2 (06:40→22:00)
[2017-10-14 07:26] VITALS: BP 156/79
[2017-10-14] MEDS: CARVEDILOL 25 MG TABLET PO SCH ×2 (08:51→21:46)
[2017-10-14] MEDS: MAGNESIUM CHLORIDE 64 MG TABLET.DR PO SCH (08:51)
[2017-10-14] MEDS: POLYETHYLENE GLYCOL 17 GM PACKET PO SCH (08:51)
[2017-10-14] MEDS: TAMSULOSIN 0.4 MG CAP.ER.24H PO SCH (08:51)
[2017-10-14] MEDS: HYDROcodone/APAP 10/325 MG TABLET PO PRN (09:17)
[2017-10-14] MEDS: CEFTRIAXONE 2 GM in DEXTROSE 5% 50 ML IV SCH (13:14)
[2017-10-14 14:05] VITALS: BP 125/78
[2017-10-14 19:56] VITALS: BP 156/88
[2017-10-14] MEDS: SIMVASTATIN 10 MG TABLET PO SCH (21:46)
[2017-10-14] MEDS: HYDROcodone/APAP 5/325 TABLET PO PRN (21:46)
[2017-10-15 01:40] VITALS: BP 148/70
[2017-10-15] MEDS: HEPARIN 5,000 UNITS/ML, 1ML SQ SCH ×3 (02:22→17:32)
[2017-10-15] MEDS: METRONIDAZOLE PMX 500MG/100ML 100 ML IV SCH ×3 (02:22→17:32)
[2017-10-15 05:13] LABS: BASOPHILS # (AUTO) 0.04 x10^3/uL (0-0.1); BASOPHILS % (AUTO) 0 % (0-1); EOSINOPHILS # (AUTO) 0.39 x10^3/uL (0-0.4); EOSINOPHILS % (AUTO) 3 % (1-7); LYMPHOCYTES # (AUTO) 1.16 x10^3/uL (1-3.4); LYMPHOCYTES % (AUTO) 9 % (22-44); MD NO; MEAN CORPUSCULAR HEMOGLOBIN 31.8 pg (27.5-34.5); MEAN CORPUSCULAR HGB CONC 33.2 g/dL (33.2-36.2); MEAN CORPUSCULAR VOLUME 95.9 fL (81-97); MEAN PLATELET VOLUME 8.2 fL (7.4-10.4); MONOCYTES % (AUTO) 6 % (2-9); NEUTROPHILS # (AUTO) 10.22 x10^3/uL (1.8-6.8); NEUTROPHILS % (AUTO) 81 % (42-75); PLATELET COUNT 449 x10^3/uL (130-400); RED BLOOD COUNT 3.69 x10^6/uL (4.38-5.82); RED CELL DISTRIBUTION WIDTH 15.7 % (9.4-14.8)
[2017-10-15 05:23] LABS: CALCIUM 8.2 mg/dL (8.5-10.1); CHLORIDE 104 mmol/L (98-107)
[2017-10-15 05:29] LABS: ALANINE AMINOTRANSFERASE 20 U/L (12-78); ALBUMIN 2.2 g/dL (3.4-5.0); ALKALINE PHOSPHATASE 66 U/L (45-117); ANION GAP 5 mmol/L (5-15); BILIRUBIN,TOTAL 0.5 mg/dL (0.2-1.0)
[2017-10-15] MEDS: ASPIRIN 81 MG TABLET EC PO SCH (06:00)
[2017-10-15 07:15] VITALS: BP 148/64
[2017-10-15] MEDS: POLYETHYLENE GLYCOL 17 GM PACKET PO SCH (09:01)
[2017-10-15] MEDS: TAMSULOSIN 0.4 MG CAP.ER.24H PO SCH (09:02)
[2017-10-15] MEDS: MAGNESIUM CHLORIDE 64 MG TABLET.DR PO SCH (09:02)
[2017-10-15] MEDS: CARVEDILOL 25 MG TABLET PO SCH ×2 (09:03→19:57)
[2017-10-15] MEDS: HYDROcodone/APAP 5/325 TABLET PO PRN ×2 (09:09→17:01)
[2017-10-15] MEDS: CEFTRIAXONE 2 GM in DEXTROSE 5% 50 ML IV SCH (13:15)
[2017-10-15 13:38] VITALS: BP 124/69
[2017-10-15 19:20] VITALS: BP 149/77
[2017-10-15] MEDS: SIMVASTATIN 10 MG TABLET PO SCH (19:57)
[2017-10-16 01:16] VITALS: BP 123/76
[2017-10-16] MEDS: METRONIDAZOLE PMX 500MG/100ML 100 ML IV SCH ×3 (02:05→17:45)
[2017-10-16] MEDS: HEPARIN 5,000 UNITS/ML, 1ML SQ SCH ×3 (02:06→17:45)
[2017-10-16] MEDS: ASPIRIN 81 MG TABLET EC PO SCH (05:49)
[2017-10-16 07:18] VITALS: BP 156/80
[2017-10-16] MEDS: TAMSULOSIN 0.4 MG CAP.ER.24H PO SCH (09:00)
[2017-10-16] MEDS: MAGNESIUM CHLORIDE 64 MG TABLET.DR PO SCH (09:11)
[2017-10-16] MEDS: POLYETHYLENE GLYCOL 17 GM PACKET PO SCH (09:11)
[2017-10-16] MEDS: CARVEDILOL 25 MG TABLET PO SCH ×2 (09:11→20:56)
[2017-10-16 11:18] LABS: ALANINE AMINOTRANSFERASE 19 U/L (12-78); ALBUMIN 2.2 g/dL (3.4-5.0); ANION GAP 5 mmol/L (5-15); CHLORIDE 103 mmol/L (98-107); CREATININE 0.62 mg/dL (0.7-1.3)
[2017-10-16 11:21] LABS: ALKALINE PHOSPHATASE 61 U/L (45-117); BILIRUBIN,TOTAL 0.3 mg/dL (0.2-1.0); TOTAL PROTEIN 5.7 g/dL (6.4-8.2)
[2017-10-16 12:09] LABS: BASOPHILS # (AUTO) 0.02 x10^3/uL (0-0.1); BASOPHILS % (AUTO) 0 % (0-1); EOSINOPHILS # (AUTO) 0.24 x10^3/uL (0-0.4); EOSINOPHILS % (AUTO) 2 % (1-7); LYMPHOCYTES # (AUTO) 0.94 x10^3/uL (1-3.4); LYMPHOCYTES % (AUTO) 10 % (22-44); MD NO; MEAN CORPUSCULAR HEMOGLOBIN 32.2 pg (27.5-34.5); MEAN CORPUSCULAR HGB CONC 34.2 g/dL (33.2-36.2); MEAN CORPUSCULAR VOLUME 94.2 fL (81-97); MEAN PLATELET VOLUME 7.9 fL (7.4-10.4); MONOCYTES # (AUTO) 0.66 x10^3/uL (0.2-0.8); MONOCYTES % (AUTO) 7 % (2-9); NEUTROPHILS # (AUTO) 7.93 x10^3/uL (1.8-6.8); NEUTROPHILS % (AUTO) 81 % (42-75); PLATELET COUNT 452 x10^3/uL (130-400); RED BLOOD COUNT 3.44 x10^6/uL (4.38-5.82); RED CELL DISTRIBUTION WIDTH 15.7 % (9.4-14.8)
[2017-10-16] MEDS: CEFTRIAXONE 2 GM in DEXTROSE 5% 50 ML IV SCH (13:19)
[2017-10-16 13:26] VITALS: BP 159/79
[2017-10-16] MEDS: HYDROcodone/APAP 5/325 TABLET PO PRN ×2 (14:21→21:02)
[2017-10-16 19:08] VITALS: BP 137/86
[2017-10-16] MEDS: SIMVASTATIN 10 MG TABLET PO SCH (20:56)
[2017-10-17 01:42] VITALS: BP 131/78
[2017-10-17] MEDS: HEPARIN 5,000 UNITS/ML, 1ML SQ SCH ×3 (01:54→17:29)
[2017-10-17] MEDS: METRONIDAZOLE PMX 500MG/100ML 100 ML IV SCH ×3 (01:55→17:28)
[2017-10-17] MEDS: HYDROcodone/APAP 5/325 TABLET PO PRN ×2 (03:16→16:33)
[2017-10-17] MEDS: ASPIRIN 81 MG TABLET EC PO SCH (06:05)
[2017-10-17 08:00] VITALS: BP 152/83
[2017-10-17] MEDS: TAMSULOSIN 0.4 MG CAP.ER.24H PO SCH (09:00)
[2017-10-17] MEDS: POLYETHYLENE GLYCOL 17 GM PACKET PO SCH (09:00)
[2017-10-17] MEDS: CARVEDILOL 25 MG TABLET PO SCH ×2 (09:12→20:57)
[2017-10-17] MEDS: MAGNESIUM CHLORIDE 64 MG TABLET.DR PO SCH (09:12)
[2017-10-17] MEDS: CEFTRIAXONE 2 GM in DEXTROSE 5% 50 ML IV SCH (13:28)
[2017-10-17 14:29] VITALS: BP 134/81
[2017-10-17 18:37] VITALS: BP 125/75
[2017-10-17] MEDS: SIMVASTATIN 10 MG TABLET PO SCH (20:57)
[2017-10-18] MEDS: METRONIDAZOLE PMX 500MG/100ML 100 ML IV SCH ×2 (02:02→09:04)
[2017-10-18] MEDS: HEPARIN 5,000 UNITS/ML, 1ML SQ SCH ×3 (02:02→17:27)
[2017-10-18 02:14] VITALS: BP 128/79
[2017-10-18] MEDS: ASPIRIN 81 MG TABLET EC PO SCH (05:28)
[2017-10-18 07:36] VITALS: BP 130/84
[2017-10-18] MEDS: POLYETHYLENE GLYCOL 17 GM PACKET PO SCH (09:00)
[2017-10-18] MEDS: TAMSULOSIN 0.4 MG CAP.ER.24H PO SCH (09:00)
[2017-10-18] MEDS: MAGNESIUM CHLORIDE 64 MG TABLET.DR PO SCH (09:04)
[2017-10-18] MEDS: CARVEDILOL 25 MG TABLET PO SCH ×2 (09:04→22:18)
[2017-10-18] MEDS: CEFTRIAXONE 2 GM in DEXTROSE 5% 50 ML IV SCH (13:07)
[2017-10-18] MEDS: HYDROcodone/APAP 5/325 TABLET PO PRN (13:10)
[2017-10-18 13:39] VITALS: BP 130/86
[2017-10-18] MEDS ORDERED: CEFTRIAXONE 2 GM in DEXTROSE 5% 50 ML IV SCH (14:23)
[2017-10-18] MEDS: metroNIDAZOLE 500 MG TABLET PO SCH ×2 (16:05→22:18)
[2017-10-18] MEDS ORDERED: METRONIDAZOLE PMX 500MG/100ML 100 ML IV SCH (17:00)
[2017-10-18 20:50] VITALS: BP 137/81
[2017-10-18] MEDS: SIMVASTATIN 10 MG TABLET PO SCH (22:18)
[2017-10-19] MEDS: HYDROcodone/APAP 5/325 TABLET PO PRN ×3 (00:05→21:31)
[2017-10-19 02:05] VITALS: BP 123/72
[2017-10-19] MEDS: HEPARIN 5,000 UNITS/ML, 1ML SQ SCH ×3 (02:06→17:40)
[2017-10-19] MEDS: ASPIRIN 81 MG TABLET EC PO SCH (06:14)
[2017-10-19 08:11] VITALS: BP 117/83
[2017-10-19] MEDS: TAMSULOSIN 0.4 MG CAP.ER.24H PO SCH (09:00)
[2017-10-19] MEDS: POLYETHYLENE GLYCOL 17 GM PACKET PO SCH (09:00)
[2017-10-19] MEDS ORDERED: CEFTRIAXONE 2 GM in DEXTROSE 5% 50 ML IV SCH (09:00)
[2017-10-19] MEDS: MAGNESIUM CHLORIDE 64 MG TABLET.DR PO SCH (09:22)
[2017-10-19] MEDS: CARVEDILOL 25 MG TABLET PO SCH ×2 (09:22→21:20)
[2017-10-19] MEDS: metroNIDAZOLE 500 MG TABLET PO SCH ×3 (09:22→21:20)
[2017-10-19 15:16] VITALS: BP 149/88
[2017-10-19 18:32] VITALS: BP 133/76
[2017-10-19] MEDS: SIMVASTATIN 10 MG TABLET PO SCH (21:20)
[2017-10-20 01:33] VITALS: BP 150/90
[2017-10-20] MEDS: HEPARIN 5,000 UNITS/ML, 1ML SQ SCH ×3 (01:38→17:11)
[2017-10-20] MEDS: HYDROcodone/APAP 5/325 TABLET PO PRN ×2 (07:12→21:35)
[2017-10-20] MEDS: ASPIRIN 81 MG TABLET EC PO SCH (07:15)
[2017-10-20 07:45] VITALS: BP 150/97
[2017-10-20] MEDS: metroNIDAZOLE 500 MG TABLET PO SCH ×3 (08:45→21:05)
[2017-10-20] MEDS: MAGNESIUM CHLORIDE 64 MG TABLET.DR PO SCH (08:45)
[2017-10-20] MEDS: POLYETHYLENE GLYCOL 17 GM PACKET PO SCH (08:45)
[2017-10-20] MEDS: CARVEDILOL 25 MG TABLET PO SCH ×2 (08:45→21:06)
[2017-10-20] MEDS: TAMSULOSIN 0.4 MG CAP.ER.24H PO SCH (08:45)
[2017-10-20 12:45] VITALS: BP 123/75
[2017-10-20 19:43] VITALS: BP 134/84
[2017-10-20] MEDS: SIMVASTATIN 10 MG TABLET PO SCH (21:06)
[2017-10-21 00:51] VITALS: BP 137/81
[2017-10-21] MEDS: HEPARIN 5,000 UNITS/ML, 1ML SQ SCH ×3 (02:10→20:52)
[2017-10-21] MEDS: ASPIRIN 81 MG TABLET EC PO SCH (06:39)
[2017-10-21] MEDS: HYDROcodone/APAP 5/325 TABLET PO PRN ×3 (06:43→18:26)
[2017-10-21 07:12] VITALS: BP 159/69
[2017-10-21] MEDS: POLYETHYLENE GLYCOL 17 GM PACKET PO SCH (09:00)
[2017-10-21] MEDS: TAMSULOSIN 0.4 MG CAP.ER.24H PO SCH (09:00)
[2017-10-21] MEDS: MAGNESIUM CHLORIDE 64 MG TABLET.DR PO SCH (11:41)
[2017-10-21] MEDS: metroNIDAZOLE 500 MG TABLET PO SCH ×3 (11:41→20:52)
[2017-10-21] MEDS: CARVEDILOL 25 MG TABLET PO SCH ×2 (11:41→20:53)
[2017-10-21 14:15] VITALS: BP 107/77
[2017-10-21 20:10] VITALS: BP 133/84
[2017-10-21] MEDS: SIMVASTATIN 10 MG TABLET PO SCH (20:53)
[2017-10-21 23:55] VITALS: BP 121/73
[2017-10-22] MEDS ORDERED: ONDANSETRON ODT 4 MG PO PRN (03:30)
[2017-10-22] MEDS: HEPARIN 5,000 UNITS/ML, 1ML SQ SCH ×3 (05:52→20:48)
[2017-10-22] MEDS: ASPIRIN 81 MG TABLET EC PO SCH (05:52)
[2017-10-22] MEDS: HYDROcodone/APAP 5/325 TABLET PO PRN ×2 (05:53→11:51)
[2017-10-22 06:45] VITALS: BP 135/78
[2017-10-22] MEDS: MAGNESIUM CHLORIDE 64 MG TABLET.DR PO SCH (08:58)
[2017-10-22] MEDS: metroNIDAZOLE 500 MG TABLET PO SCH ×3 (08:59→20:48)
[2017-10-22] MEDS: CARVEDILOL 25 MG TABLET PO SCH ×3 (08:59→20:48)
[2017-10-22] MEDS: TAMSULOSIN 0.4 MG CAP.ER.24H PO SCH ×2 (08:59→09:00)
[2017-10-22] MEDS: POLYETHYLENE GLYCOL 17 GM PACKET PO SCH (09:00)
[2017-10-22 12:40] VITALS: BP 125/75
[2017-10-22] MEDS: SIMVASTATIN 10 MG TABLET PO SCH (20:48)
[2017-10-22 20:51] VITALS: BP 133/90
[2017-10-23] MEDS: HYDROcodone/APAP 5/325 TABLET PO PRN ×2 (00:19→05:57)
[2017-10-23 01:04] VITALS: BP 136/87
[2017-10-23] MEDS: ASPIRIN 81 MG TABLET EC PO SCH (05:48)
[2017-10-23] MEDS: HEPARIN 5,000 UNITS/ML, 1ML SQ SCH (05:48)
[2017-10-23 07:32] VITALS: BP 146/91
[2017-10-23] MEDS: POLYETHYLENE GLYCOL 17 GM PACKET PO SCH (08:53)
[2017-10-23] MEDS: TAMSULOSIN 0.4 MG CAP.ER.24H PO SCH (08:54)
[2017-10-23] MEDS: CARVEDILOL 25 MG TABLET PO SCH (08:56)
[2017-10-23] MEDS: metroNIDAZOLE 500 MG TABLET PO SCH (08:56)
[2017-10-23] MEDS: MAGNESIUM CHLORIDE 64 MG TABLET.DR PO SCH (08:56)
[2017-10-23 11:27] LABS: BASOPHILS # (AUTO) 0.06 x10^3/uL (0-0.1); BASOPHILS % (AUTO) 1 % (0-1); EOSINOPHILS # (AUTO) 0.25 x10^3/uL (0-0.4); EOSINOPHILS % (AUTO) 4 % (1-7); LYMPHOCYTES # (AUTO) 1.18 x10^3/uL (1-3.4); LYMPHOCYTES % (AUTO) 17 % (22-44); MD NO; MEAN CORPUSCULAR HEMOGLOBIN 32.2 pg (27.5-34.5); MEAN CORPUSCULAR HGB CONC 33.6 g/dL (33.2-36.2); MEAN CORPUSCULAR VOLUME 95.9 fL (81-97); MONOCYTES % (AUTO) 16 % (2-9); NEUTROPHILS # (AUTO) 4.48 x10^3/uL (1.8-6.8); NEUTROPHILS % (AUTO) 63 % (42-75); PLATELET COUNT 355 x10^3/uL (130-400); RED BLOOD COUNT 4.04 x10^6/uL (4.38-5.82); RED CELL DISTRIBUTION WIDTH 16.4 % (9.4-14.8)
[2017-10-23] MEDS ORDERED: TAMS-11 PO (11:44)
[2017-10-23 12:00] VITALS: BP 140/88
== END 2017-10-23 13:11 | disposition home or self-care (01) | DRG 417 ==
LOC: SUATTDRO 10-04 02:11 → ED 10-04 02:32 → EDIP 10-04 03:04 → 5SO 10-04 03:07 → 4NOR 10-12 16:10
PROVIDERS: ADMIT Hospitalist; ATTEND Family Medicine
PROC: 0T9B70Z Drainage of Bladder with Drainage Device, Via Natural or Artificial Opening (ICD-10-PCS; 2017-10-04)
PROC: 5A09457 Assistance with Respiratory Ventilation, 24-96 Consecutive Hours, Continuous Positive Airway Pressure (ICD-10-PCS; 2017-10-04)
PROC: 30233N1 Transfusion of Nonautologous Red Blood Cells into Peripheral Vein, Percutaneous Approach (ICD-10-PCS; 2017-10-08)
PROC: 0FT44ZZ Resection of Gallbladder, Percutaneous Endoscopic Approach (ICD-10-PCS; principal; 2017-10-08 07:30)
DX: K80.12 Calculus of gallbladder with acute and chronic cholecystitis without obstruction (principal); E43 Unspecified severe protein-calorie malnutrition; J96.21 Acute and chronic respiratory failure with hypoxia; N17.0 Acute kidney failure with tubular necrosis; G93.41 Metabolic encephalopathy; I24.8 Other forms of acute ischemic heart disease; L03.115 Cellulitis of right lower limb; E86.0 Dehydration; R53.2 Functional quadriplegia; I50.42 Chronic combined systolic (congestive) and diastolic (congestive) heart failure; I42.9 Cardiomyopathy, unspecified; E66.2 Morbid (severe) obesity with alveolar hypoventilation; F19.20 Other psychoactive substance dependence, uncomplicated; L03.116 Cellulitis of left lower limb; Z68.41 Body mass index [BMI] 40.0-44.9, adult; I11.0 Hypertensive heart disease with heart failure; E03.9 Hypothyroidism, unspecified; E05.90 Thyrotoxicosis, unspecified without thyrotoxic crisis or storm; E78.5 Hyperlipidemia, unspecified; G89.29 Other chronic pain; R29.6 Repeated falls; Z72.0 Tobacco use; Z87.01 Personal history of pneumonia (recurrent); Z87.440 Personal history of urinary (tract) infections; Z95.810 Presence of automatic (implantable) cardiac defibrillator; Z98.1 Arthrodesis status
CPT/HCPCS: 36415; 36600; 70450; 71045; 72131; 74177; 76705; 80048; 80053; 80076; 81001; 82140; 82803; 83605; 83690; 83735; 83880; 84100; 84145; 84439; 84443; 84484; 85014; 85018; 85025; 85379; 85520; 85610; 85730; 86850; 86900; 86923; 87040; 87086; 87324; 88304; 93005; 93306; 93970; 94660; 96372; 99285; J0696; J1644; J1650; J2250; J2405; J2704; J2710; J3010; J3370; J3490; Q9967; 92523-GN; C1760; J2060; J2270; J7030; J7040; P9016; S0074

== ENCOUNTER → 2017-12-28 | Outpatient (CLI) | payer OTHER ==
[~2017-12-28] MED LIST changes: +TAMS-11 PO
== END | disposition home or self-care (01) ==
LOC: CVU 07:30
PROVIDERS: ATTEND Physician Assistant
DX: I70.203 Unspecified atherosclerosis of native arteries of extremities, bilateral legs (principal); I11.0 Hypertensive heart disease with heart failure; E78.5 Hyperlipidemia, unspecified; G47.30 Sleep apnea, unspecified
CPT/HCPCS: 93922; 93925; 93970

== ENCOUNTER → 2018-03-14 | Outpatient (CLI) | payer OTHER | END | disposition home or self-care (01) | LOC: CFH 10:11 | PROVIDERS: ATTEND Family Medicine | DX: R60.9 Edema, unspecified (principal); I50.9 Heart failure, unspecified; Z87.891 Personal history of nicotine dependence; Z88.1 Allergy status to other antibiotic agents | CPT/HCPCS: 71046 ==

== ENCOUNTER → 2018-10-21 | Outpatient (CLI) | payer OTHER ==
[~2018-10-21] MED LIST changes: -ASPI-621 PO; +ASPI81TA45 PO
== END | disposition home or self-care (01) ==
LOC: WOUND 10:01
PROVIDERS: ATTEND Internal Medicine
DX: I87.321 Chronic venous hypertension (idiopathic) with inflammation of right lower extremity (principal); L97.222 Non-pressure chronic ulcer of left calf with fat layer exposed; I87.331 Chronic venous hypertension (idiopathic) with ulcer and inflammation of right lower extremity; L97.212 Non-pressure chronic ulcer of right calf with fat layer exposed; I11.0 Hypertensive heart disease with heart failure; I50.9 Heart failure, unspecified; E78.5 Hyperlipidemia, unspecified; I42.9 Cardiomyopathy, unspecified; G47.33 Obstructive sleep apnea (adult) (pediatric); E66.01 Morbid (severe) obesity due to excess calories; Z68.42 Body mass index [BMI] 45.0-49.9, adult; Z87.891 Personal history of nicotine dependence; Z95.0 Presence of cardiac pacemaker; Z88.1 Allergy status to other antibiotic agents
CPT/HCPCS: 97597; 97598; 99215

== ENCOUNTER → 2018-10-23 | Outpatient (CLI) | payer OTHER | END | disposition home or self-care (01) | LOC: WOUND 14:46 | PROVIDERS: ATTEND Internal Medicine | DX: I87.333 Chronic venous hypertension (idiopathic) with ulcer and inflammation of bilateral lower extremity (principal); L97.222 Non-pressure chronic ulcer of left calf with fat layer exposed; L97.212 Non-pressure chronic ulcer of right calf with fat layer exposed; I11.0 Hypertensive heart disease with heart failure; I50.9 Heart failure, unspecified; E78.5 Hyperlipidemia, unspecified; I42.9 Cardiomyopathy, unspecified; G47.33 Obstructive sleep apnea (adult) (pediatric); E66.01 Morbid (severe) obesity due to excess calories; Z68.42 Body mass index [BMI] 45.0-49.9, adult; Z95.0 Presence of cardiac pacemaker; Z88.1 Allergy status to other antibiotic agents; Z87.891 Personal history of nicotine dependence | CPT/HCPCS: 29581 ==

== ENCOUNTER → 2018-10-28 | Outpatient (CLI) | payer OTHER | END | disposition home or self-care (01) | LOC: WOUND 09:13 | PROVIDERS: ATTEND Internal Medicine | DX: I87.321 Chronic venous hypertension (idiopathic) with inflammation of right lower extremity (principal); L97.212 Non-pressure chronic ulcer of right calf with fat layer exposed; I87.331 Chronic venous hypertension (idiopathic) with ulcer and inflammation of right lower extremity; L97.222 Non-pressure chronic ulcer of left calf with fat layer exposed; I11.0 Hypertensive heart disease with heart failure; I50.9 Heart failure, unspecified; E78.5 Hyperlipidemia, unspecified; I42.9 Cardiomyopathy, unspecified; G47.33 Obstructive sleep apnea (adult) (pediatric); J96.21 Acute and chronic respiratory failure with hypoxia; E66.01 Morbid (severe) obesity due to excess calories; Z68.41 Body mass index [BMI] 40.0-44.9, adult; Z87.891 Personal history of nicotine dependence; Z88.1 Allergy status to other antibiotic agents; Z95.0 Presence of cardiac pacemaker | CPT/HCPCS: 97597; 97598 ==

== ENCOUNTER → 2018-11-04 | Outpatient (CLI) | payer OTHER | END | disposition home or self-care (01) | LOC: WOUND 09:26 | PROVIDERS: ATTEND Internal Medicine | DX: I87.321 Chronic venous hypertension (idiopathic) with inflammation of right lower extremity (principal); L97.222 Non-pressure chronic ulcer of left calf with fat layer exposed; I87.331 Chronic venous hypertension (idiopathic) with ulcer and inflammation of right lower extremity; L97.212 Non-pressure chronic ulcer of right calf with fat layer exposed; I11.0 Hypertensive heart disease with heart failure; I50.9 Heart failure, unspecified; E78.5 Hyperlipidemia, unspecified; I42.9 Cardiomyopathy, unspecified; G47.33 Obstructive sleep apnea (adult) (pediatric); E66.01 Morbid (severe) obesity due to excess calories; Z68.41 Body mass index [BMI] 40.0-44.9, adult; Z88.1 Allergy status to other antibiotic agents; Z95.0 Presence of cardiac pacemaker; Z87.891 Personal history of nicotine dependence | CPT/HCPCS: 97597; 97598 ==

== ENCOUNTER → 2018-11-11 | Outpatient (CLI) | payer OTHER | END | disposition home or self-care (01) | LOC: WOUND 09:46 | PROVIDERS: ATTEND Internal Medicine | DX: I87.321 Chronic venous hypertension (idiopathic) with inflammation of right lower extremity (principal); L97.222 Non-pressure chronic ulcer of left calf with fat layer exposed; I87.331 Chronic venous hypertension (idiopathic) with ulcer and inflammation of right lower extremity; L97.212 Non-pressure chronic ulcer of right calf with fat layer exposed; I11.0 Hypertensive heart disease with heart failure; I50.9 Heart failure, unspecified; E78.5 Hyperlipidemia, unspecified; I42.9 Cardiomyopathy, unspecified; G47.33 Obstructive sleep apnea (adult) (pediatric); J44.1 Chronic obstructive pulmonary disease with (acute) exacerbation; E66.01 Morbid (severe) obesity due to excess calories; Z68.41 Body mass index [BMI] 40.0-44.9, adult; Z95.0 Presence of cardiac pacemaker; Z87.891 Personal history of nicotine dependence; Z88.1 Allergy status to other antibiotic agents | CPT/HCPCS: 97597; 97598 ==

== ENCOUNTER → 2018-11-25 | Outpatient (CLI) | payer OTHER | END | disposition home or self-care (01) | LOC: WOUND 14:30 | PROVIDERS: ATTEND Internal Medicine | DX: I87.331 Chronic venous hypertension (idiopathic) with ulcer and inflammation of right lower extremity (principal); L97.212 Non-pressure chronic ulcer of right calf with fat layer exposed; I87.322 Chronic venous hypertension (idiopathic) with inflammation of left lower extremity; L97.222 Non-pressure chronic ulcer of left calf with fat layer exposed; I11.0 Hypertensive heart disease with heart failure; I50.9 Heart failure, unspecified; E78.5 Hyperlipidemia, unspecified; I42.9 Cardiomyopathy, unspecified; G47.33 Obstructive sleep apnea (adult) (pediatric); J96.11 Chronic respiratory failure with hypoxia; E66.01 Morbid (severe) obesity due to excess calories; Z88.1 Allergy status to other antibiotic agents; Z95.0 Presence of cardiac pacemaker; Z68.41 Body mass index [BMI] 40.0-44.9, adult; Z87.891 Personal history of nicotine dependence | CPT/HCPCS: 29581; 97597 ==

== ENCOUNTER → 2018-12-02 | Outpatient (CLI) | payer OTHER | END | disposition home or self-care (01) | LOC: WOUND 13:32 | PROVIDERS: ATTEND Internal Medicine Cardiovascular Disease | DX: I87.321 Chronic venous hypertension (idiopathic) with inflammation of right lower extremity (principal); L97.222 Non-pressure chronic ulcer of left calf with fat layer exposed; I87.331 Chronic venous hypertension (idiopathic) with ulcer and inflammation of right lower extremity; L97.212 Non-pressure chronic ulcer of right calf with fat layer exposed; I11.0 Hypertensive heart disease with heart failure; I50.9 Heart failure, unspecified; E78.5 Hyperlipidemia, unspecified; I42.9 Cardiomyopathy, unspecified; J96.11 Chronic respiratory failure with hypoxia; G47.33 Obstructive sleep apnea (adult) (pediatric); E66.01 Morbid (severe) obesity due to excess calories; Z95.0 Presence of cardiac pacemaker; Z68.41 Body mass index [BMI] 40.0-44.9, adult; Z87.891 Personal history of nicotine dependence; Z88.1 Allergy status to other antibiotic agents | CPT/HCPCS: 29581 ==

== ENCOUNTER → 2018-12-09 | Outpatient (CLI) | payer OTHER | END | disposition home or self-care (01) | LOC: WOUND 14:22 | PROVIDERS: ATTEND Internal Medicine | DX: I87.322 Chronic venous hypertension (idiopathic) with inflammation of left lower extremity (principal); L97.222 Non-pressure chronic ulcer of left calf with fat layer exposed; I87.331 Chronic venous hypertension (idiopathic) with ulcer and inflammation of right lower extremity; L97.212 Non-pressure chronic ulcer of right calf with fat layer exposed; I11.0 Hypertensive heart disease with heart failure; I50.9 Heart failure, unspecified; I42.9 Cardiomyopathy, unspecified; E78.5 Hyperlipidemia, unspecified; J44.1 Chronic obstructive pulmonary disease with (acute) exacerbation; J96.11 Chronic respiratory failure with hypoxia; G47.33 Obstructive sleep apnea (adult) (pediatric); E66.01 Morbid (severe) obesity due to excess calories; Z68.41 Body mass index [BMI] 40.0-44.9, adult; Z95.0 Presence of cardiac pacemaker; Z88.1 Allergy status to other antibiotic agents; Z87.891 Personal history of nicotine dependence | CPT/HCPCS: 97597; 97598 ==

== ENCOUNTER → 2018-12-16 | Outpatient (CLI) | payer OTHER | END | disposition home or self-care (01) | LOC: WOUND 09:48 | PROVIDERS: ATTEND Internal Medicine | DX: I87.322 Chronic venous hypertension (idiopathic) with inflammation of left lower extremity (principal); L97.222 Non-pressure chronic ulcer of left calf with fat layer exposed; I87.331 Chronic venous hypertension (idiopathic) with ulcer and inflammation of right lower extremity; L97.212 Non-pressure chronic ulcer of right calf with fat layer exposed; I11.0 Hypertensive heart disease with heart failure; I50.9 Heart failure, unspecified; I42.9 Cardiomyopathy, unspecified; E78.5 Hyperlipidemia, unspecified; J44.1 Chronic obstructive pulmonary disease with (acute) exacerbation; J96.11 Chronic respiratory failure with hypoxia; G47.33 Obstructive sleep apnea (adult) (pediatric); E66.01 Morbid (severe) obesity due to excess calories; Z68.41 Body mass index [BMI] 40.0-44.9, adult; Z95.0 Presence of cardiac pacemaker; Z88.1 Allergy status to other antibiotic agents; Z87.891 Personal history of nicotine dependence | CPT/HCPCS: 97597; 97598 ==

== ENCOUNTER 2018-12-23 09:27 | Outpatient (CLI) | payer OTHER | END 2018-12-23 23:59 | disposition home or self-care (01) | LOC: WOUND 09:27 | PROVIDERS: ATTEND Internal Medicine | DX: I87.322 Chronic venous hypertension (idiopathic) with inflammation of left lower extremity (principal); L97.222 Non-pressure chronic ulcer of left calf with fat layer exposed; I87.331 Chronic venous hypertension (idiopathic) with ulcer and inflammation of right lower extremity; L97.212 Non-pressure chronic ulcer of right calf with fat layer exposed; I11.0 Hypertensive heart disease with heart failure; I50.9 Heart failure, unspecified; I42.9 Cardiomyopathy, unspecified; E78.5 Hyperlipidemia, unspecified; J44.1 Chronic obstructive pulmonary disease with (acute) exacerbation; J96.11 Chronic respiratory failure with hypoxia; G47.33 Obstructive sleep apnea (adult) (pediatric); E66.01 Morbid (severe) obesity due to excess calories; Z68.41 Body mass index [BMI] 40.0-44.9, adult; Z95.0 Presence of cardiac pacemaker; Z88.1 Allergy status to other antibiotic agents; Z87.891 Personal history of nicotine dependence | CPT/HCPCS: 97597; 97598 ==

== ENCOUNTER → 2018-12-30 | Outpatient (CLI) | payer OTHER | END | disposition home or self-care (01) | LOC: WOUND 09:59 | PROVIDERS: ATTEND Internal Medicine | DX: I87.322 Chronic venous hypertension (idiopathic) with inflammation of left lower extremity (principal); L97.222 Non-pressure chronic ulcer of left calf with fat layer exposed; I87.331 Chronic venous hypertension (idiopathic) with ulcer and inflammation of right lower extremity; L97.212 Non-pressure chronic ulcer of right calf with fat layer exposed; I11.0 Hypertensive heart disease with heart failure; I50.9 Heart failure, unspecified; I42.9 Cardiomyopathy, unspecified; E78.5 Hyperlipidemia, unspecified; J44.1 Chronic obstructive pulmonary disease with (acute) exacerbation; J96.11 Chronic respiratory failure with hypoxia; G47.33 Obstructive sleep apnea (adult) (pediatric); E66.01 Morbid (severe) obesity due to excess calories; Z68.41 Body mass index [BMI] 40.0-44.9, adult; Z95.0 Presence of cardiac pacemaker; Z88.1 Allergy status to other antibiotic agents; Z87.891 Personal history of nicotine dependence | CPT/HCPCS: 97597; 97598 ==

== ENCOUNTER → 2019-01-06 | Outpatient (CLI) | payer OTHER | END | disposition home or self-care (01) | LOC: WOUND 09:23 | PROVIDERS: ATTEND Internal Medicine | DX: I87.322 Chronic venous hypertension (idiopathic) with inflammation of left lower extremity (principal); L97.222 Non-pressure chronic ulcer of left calf with fat layer exposed; I87.301 Chronic venous hypertension (idiopathic) without complications of right lower extremity; L97.218 Non-pressure chronic ulcer of right calf with other specified severity; I11.0 Hypertensive heart disease with heart failure; I50.9 Heart failure, unspecified; I42.9 Cardiomyopathy, unspecified; E78.5 Hyperlipidemia, unspecified; J44.1 Chronic obstructive pulmonary disease with (acute) exacerbation; J96.11 Chronic respiratory failure with hypoxia; G47.33 Obstructive sleep apnea (adult) (pediatric); E66.01 Morbid (severe) obesity due to excess calories; Z68.41 Body mass index [BMI] 40.0-44.9, adult; Z95.0 Presence of cardiac pacemaker; Z88.1 Allergy status to other antibiotic agents; Z87.891 Personal history of nicotine dependence | CPT/HCPCS: 29581 ==

== ENCOUNTER 2019-01-09 11:29 | Outpatient (CLI) | payer OTHER | END 2019-01-09 23:59 | disposition home or self-care (01) | LOC: WOUND 11:29 | PROVIDERS: ATTEND Podiatrist Foot & Ankle Surgery | DX: I87.322 Chronic venous hypertension (idiopathic) with inflammation of left lower extremity (principal); L97.222 Non-pressure chronic ulcer of left calf with fat layer exposed; I87.301 Chronic venous hypertension (idiopathic) without complications of right lower extremity; L97.218 Non-pressure chronic ulcer of right calf with other specified severity; I11.0 Hypertensive heart disease with heart failure; I50.9 Heart failure, unspecified; I42.9 Cardiomyopathy, unspecified; E78.5 Hyperlipidemia, unspecified; J44.9 Chronic obstructive pulmonary disease, unspecified; J96.11 Chronic respiratory failure with hypoxia; G47.33 Obstructive sleep apnea (adult) (pediatric); E66.01 Morbid (severe) obesity due to excess calories; Z68.41 Body mass index [BMI] 40.0-44.9, adult; Z95.0 Presence of cardiac pacemaker; Z88.1 Allergy status to other antibiotic agents; Z87.891 Personal history of nicotine dependence | CPT/HCPCS: 29581 ==

== ENCOUNTER 2019-01-13 09:33 | Outpatient (CLI) | payer OTHER | END 2019-01-13 23:59 | disposition home or self-care (01) | LOC: WOUND 09:33 | PROVIDERS: ATTEND Internal Medicine | DX: I87.322 Chronic venous hypertension (idiopathic) with inflammation of left lower extremity (principal); L97.222 Non-pressure chronic ulcer of left calf with fat layer exposed; I87.331 Chronic venous hypertension (idiopathic) with ulcer and inflammation of right lower extremity; L97.212 Non-pressure chronic ulcer of right calf with fat layer exposed; I11.0 Hypertensive heart disease with heart failure; I50.9 Heart failure, unspecified; L60.0 Ingrowing nail; I42.9 Cardiomyopathy, unspecified; E78.5 Hyperlipidemia, unspecified; J44.1 Chronic obstructive pulmonary disease with (acute) exacerbation; J96.11 Chronic respiratory failure with hypoxia; G47.33 Obstructive sleep apnea (adult) (pediatric); E66.01 Morbid (severe) obesity due to excess calories; Z68.41 Body mass index [BMI] 40.0-44.9, adult; Z95.0 Presence of cardiac pacemaker; Z88.1 Allergy status to other antibiotic agents; Z87.891 Personal history of nicotine dependence | CPT/HCPCS: 99215 ==

== ENCOUNTER 2019-01-13 10:25 | Emergency (ER) | payer OTHER ==
[~2019-01-13] VITALS: Ht 182.9 cm; Wt 160.0 kg
--- NOTE | 2019-01-13 10:40 | NUR ---
P[employer] ON ARRIVAL. [facility]. PT HAS WOUND LEFT CALF WITH ERYTHEMA AND REDNESS CIRCUMFRENCIALLY LOWER EXTREMITY THAT HAS BEEN WORSENING OVER THE WEEKS. ADDITIONALLY LEFT GREAT TOE NAIL PAIN WITH POSSIBLE INGROWN NAIL
--- NOTE | 2019-01-13 11:47 | NUR ---
LLE WOUND REDRESSED WITH NONSTICK DRESSING.
[2019-01-13 12:03] LABS: BASOPHILS # (AUTO) 0.04 x10^3/uL (0-0.1); BASOPHILS % (AUTO) 1 % (0-1); EOSINOPHILS # (AUTO) 0.26 x10^3/uL (0-0.4); EOSINOPHILS % (AUTO) 3 % (1-7); LYMPHOCYTES # (AUTO) 1.64 x10^3/uL (1-3.4); LYMPHOCYTES % (AUTO) 18 % (22-44); MD NO; MEAN CORPUSCULAR HEMOGLOBIN 31.9 pg (27.5-34.5); MEAN CORPUSCULAR HGB CONC 32.6 g/dL (33.2-36.2); MEAN PLATELET VOLUME 7.6 fL (7.4-10.4); MONOCYTES # (AUTO) 0.81 x10^3/uL (0.2-0.8); MONOCYTES % (AUTO) 9 % (2-9); NEUTROPHILS # (AUTO) 6.23 x10^3/uL (1.8-6.8); NEUTROPHILS % (AUTO) 69 % (42-75); PLATELET COUNT 242 x10^3/uL (130-400); RED BLOOD COUNT 4.55 x10^6/uL (4.38-5.82); RED CELL DISTRIBUTION WIDTH 14.1 % (9.4-14.8)
[2019-01-13 12:12] LABS: ALANINE AMINOTRANSFERASE 32 U/L (12-78); ALBUMIN 3.4 g/dL (3.4-5.0); ANION GAP 8 mmol/L (5-15); CALCIUM 8.5 mg/dL (8.5-10.1); CHLORIDE 103 mmol/L (98-107)
[2019-01-13 12:17] LABS: ALKALINE PHOSPHATASE 91 U/L (45-117); BILIRUBIN,TOTAL 0.6 mg/dL (0.2-1.0); CREATININE 1.34 mg/dL (0.7-1.3); TOTAL PROTEIN 7.3 g/dL (6.4-8.2); TROPONIN I < 0.015 ng/mL (0.000-0.045)
--- NOTE | 2019-01-13 12:21 | NUR ---
PT WANTING TO AMBULATE TO BATHROOM. EXPLAINED TO PT THAT AT THIS TIME HE IS AT RISK FOR FALLING BECAUSE OF HIS DROWSINESS. PT SITTING ON EDGE OF [facility] WITH RN AT SIDE ATTEMPTING TO USE URINAL. PT UNABLE TO URINATE AT THIS TIME. PT WANTING TO REMAIN AT EDGE OF BED IT IS A POSITION OF COMFORT. EXPLAINED TO PT THAT HE CANNOT AT THIS TIME BECAUSE OF HIS RISK FOR FALLING. ASSISTED BACK INTO [facility]
[2019-01-13] MEDS ORDERED: HYDROcodone/APAP 5/325 TABLET PO ONE (12:30)
[2019-01-13] MEDS ORDERED: HYDROcodone/APAP 5/325 TABLET ONE (12:34)
--- NOTE | 2019-01-13 12:37 | NUR ---
MEDICATED FOR PAIN. PT LYING ON RIGHT SIDE IN POSITION OF COMFORT. MOTHER IN ROOM WITH PT
--- NOTE | 2019-01-13 13:33 | NUR ---
PT SNORING HEAVILY WHILE SLEEPING. RN ADJUSTED NASAL CANNULA. SPO2 95%
--- NOTE | 2019-01-13 14:25 | NUR ---
LEFT LEG REDRESSED.
[2019-01-13 14:45] VITALS: BP 119/73
== END 2019-01-13 14:49 | disposition home or self-care (01) ==
LOC: ED 12:55
DX: L60.0 Ingrowing nail (principal); M79.662 Pain in left lower leg
CPT/HCPCS: 36415; 71045; 80053; 83605; 84145; 84484; 85025; 87040; 99284

== ENCOUNTER 2019-01-16 10:17 | Outpatient (CLI) | payer OTHER | END 2019-01-16 23:59 | disposition home or self-care (01) | LOC: CVU 10:17 | PROVIDERS: ATTEND Registered Nurse | DX: I05.9 Rheumatic mitral valve disease, unspecified (principal); R94.31 Abnormal electrocardiogram [ECG] [EKG]; I10 Essential (primary) hypertension; E78.5 Hyperlipidemia, unspecified; I25.2 Old myocardial infarction; Z95.0 Presence of cardiac pacemaker | CPT/HCPCS: 93005; 93306 ==

== ENCOUNTER 2019-01-24 11:01 | Outpatient (CLI) | payer OTHER | END 2019-01-24 23:59 | disposition home or self-care (01) | LOC: WOUND 11:01 | PROVIDERS: ATTEND Family Medicine | DX: I87.332 Chronic venous hypertension (idiopathic) with ulcer and inflammation of left lower extremity (principal); L97.222 Non-pressure chronic ulcer of left calf with fat layer exposed; I87.331 Chronic venous hypertension (idiopathic) with ulcer and inflammation of right lower extremity; L97.212 Non-pressure chronic ulcer of right calf with fat layer exposed; I11.0 Hypertensive heart disease with heart failure; I50.9 Heart failure, unspecified; L60.0 Ingrowing nail; I42.9 Cardiomyopathy, unspecified; E78.5 Hyperlipidemia, unspecified; J44.1 Chronic obstructive pulmonary disease with (acute) exacerbation; J96.11 Chronic respiratory failure with hypoxia; G47.33 Obstructive sleep apnea (adult) (pediatric); E66.01 Morbid (severe) obesity due to excess calories; Z68.41 Body mass index [BMI] 40.0-44.9, adult; Z95.0 Presence of cardiac pacemaker; Z88.1 Allergy status to other antibiotic agents; Z87.891 Personal history of nicotine dependence | CPT/HCPCS: 97597; 97598 ==

== ENCOUNTER 2019-01-28 11:07 | Outpatient (CLI) | payer OTHER | END 2019-01-28 23:59 | disposition home or self-care (01) | LOC: WOUND 11:07 | PROVIDERS: ATTEND Nurse Practitioner Family | DX: I87.332 Chronic venous hypertension (idiopathic) with ulcer and inflammation of left lower extremity (principal); L97.222 Non-pressure chronic ulcer of left calf with fat layer exposed; I87.331 Chronic venous hypertension (idiopathic) with ulcer and inflammation of right lower extremity; L97.212 Non-pressure chronic ulcer of right calf with fat layer exposed; I11.0 Hypertensive heart disease with heart failure; I50.9 Heart failure, unspecified; L60.0 Ingrowing nail; I42.9 Cardiomyopathy, unspecified; E78.5 Hyperlipidemia, unspecified; J44.1 Chronic obstructive pulmonary disease with (acute) exacerbation; J96.11 Chronic respiratory failure with hypoxia; G47.33 Obstructive sleep apnea (adult) (pediatric); E66.01 Morbid (severe) obesity due to excess calories; Z68.41 Body mass index [BMI] 40.0-44.9, adult; Z95.0 Presence of cardiac pacemaker; Z88.1 Allergy status to other antibiotic agents; Z87.891 Personal history of nicotine dependence | CPT/HCPCS: 99213 ==

== ENCOUNTER 2019-01-31 09:31 | Outpatient (CLI) | payer OTHER | END 2019-01-31 23:59 | disposition home or self-care (01) | LOC: WOUND 09:31 | PROVIDERS: ATTEND Family Medicine | DX: I87.332 Chronic venous hypertension (idiopathic) with ulcer and inflammation of left lower extremity (principal); L97.222 Non-pressure chronic ulcer of left calf with fat layer exposed; I87.331 Chronic venous hypertension (idiopathic) with ulcer and inflammation of right lower extremity; L97.212 Non-pressure chronic ulcer of right calf with fat layer exposed; I11.0 Hypertensive heart disease with heart failure; I50.9 Heart failure, unspecified; L60.0 Ingrowing nail; I42.9 Cardiomyopathy, unspecified; E78.5 Hyperlipidemia, unspecified; J44.1 Chronic obstructive pulmonary disease with (acute) exacerbation; J96.11 Chronic respiratory failure with hypoxia; G47.33 Obstructive sleep apnea (adult) (pediatric); E66.01 Morbid (severe) obesity due to excess calories; Z68.41 Body mass index [BMI] 40.0-44.9, adult; Z95.0 Presence of cardiac pacemaker; Z88.1 Allergy status to other antibiotic agents; Z87.891 Personal history of nicotine dependence | CPT/HCPCS: 97597; 97598 ==

== ENCOUNTER 2019-02-03 08:24 | Outpatient (CLI) | payer OTHER | END 2019-02-03 23:59 | disposition home or self-care (01) | LOC: WOUND 08:24 | PROVIDERS: ATTEND Internal Medicine | DX: I87.332 Chronic venous hypertension (idiopathic) with ulcer and inflammation of left lower extremity (principal); L97.222 Non-pressure chronic ulcer of left calf with fat layer exposed; I87.331 Chronic venous hypertension (idiopathic) with ulcer and inflammation of right lower extremity; L97.212 Non-pressure chronic ulcer of right calf with fat layer exposed; I11.0 Hypertensive heart disease with heart failure; I50.9 Heart failure, unspecified; L60.0 Ingrowing nail; I42.9 Cardiomyopathy, unspecified; E78.5 Hyperlipidemia, unspecified; J44.1 Chronic obstructive pulmonary disease with (acute) exacerbation; J96.11 Chronic respiratory failure with hypoxia; G47.33 Obstructive sleep apnea (adult) (pediatric); E66.01 Morbid (severe) obesity due to excess calories; Z68.41 Body mass index [BMI] 40.0-44.9, adult; Z88.1 Allergy status to other antibiotic agents; Z87.891 Personal history of nicotine dependence | CPT/HCPCS: 99213 ==

== ENCOUNTER 2019-02-07 13:54 | Outpatient (CLI) | payer OTHER | END 2019-02-07 23:59 | disposition home or self-care (01) | LOC: WOUND 13:54 | PROVIDERS: ATTEND Family Medicine | DX: I87.332 Chronic venous hypertension (idiopathic) with ulcer and inflammation of left lower extremity (principal); L97.222 Non-pressure chronic ulcer of left calf with fat layer exposed; I87.331 Chronic venous hypertension (idiopathic) with ulcer and inflammation of right lower extremity; L97.212 Non-pressure chronic ulcer of right calf with fat layer exposed; I11.0 Hypertensive heart disease with heart failure; I50.9 Heart failure, unspecified; L60.0 Ingrowing nail; I42.9 Cardiomyopathy, unspecified; E78.5 Hyperlipidemia, unspecified; J44.1 Chronic obstructive pulmonary disease with (acute) exacerbation; J96.11 Chronic respiratory failure with hypoxia; G47.33 Obstructive sleep apnea (adult) (pediatric); E66.01 Morbid (severe) obesity due to excess calories; Z68.41 Body mass index [BMI] 40.0-44.9, adult; Z95.0 Presence of cardiac pacemaker; Z88.1 Allergy status to other antibiotic agents; Z87.891 Personal history of nicotine dependence | CPT/HCPCS: 97597; 97598 ==

== ENCOUNTER 2019-03-04 09:48 | Outpatient (CLI) | payer OTHER | END 2019-03-04 23:59 | disposition home or self-care (01) | LOC: WOUND 09:48 | PROVIDERS: ATTEND Nurse Practitioner Family | DX: I87.332 Chronic venous hypertension (idiopathic) with ulcer and inflammation of left lower extremity (principal); L97.222 Non-pressure chronic ulcer of left calf with fat layer exposed; I87.331 Chronic venous hypertension (idiopathic) with ulcer and inflammation of right lower extremity; L97.212 Non-pressure chronic ulcer of right calf with fat layer exposed; I11.0 Hypertensive heart disease with heart failure; I50.9 Heart failure, unspecified; L60.0 Ingrowing nail; I42.9 Cardiomyopathy, unspecified; E78.5 Hyperlipidemia, unspecified; J44.1 Chronic obstructive pulmonary disease with (acute) exacerbation; J96.11 Chronic respiratory failure with hypoxia; G47.33 Obstructive sleep apnea (adult) (pediatric); E66.01 Morbid (severe) obesity due to excess calories; Z68.41 Body mass index [BMI] 40.0-44.9, adult; Z95.0 Presence of cardiac pacemaker; Z88.1 Allergy status to other antibiotic agents; Z87.891 Personal history of nicotine dependence | CPT/HCPCS: 29581 ==